=== PATIENT | female | born 1950 | race Caucasian/White ===

== ENCOUNTER 2024-09-05 20:14 | Inpatient (IN) | payer MEDICARE, OTHER, SELFPAY ==
--- NOTE | ~2024-09-05 | XR_ITS ---
CHEST RADIOGRAPH, PA AND LATERAL CLINICAL HISTORY: dizziness, htn . COMPARISON: None available TECHNIQUE: PA and lateral views of the chest. FINDINGS The cardiomediastinal silhouette is unremarkable. The lungs are clear. Visualized osseous structures and soft tissues are unremarkable. IMPRESSION: No focal infiltrate or effusion. Reviewed, dictated and finalized at location A.
--- NOTE | ~2024-09-05 | US_ITS ---
EXAMINATION: US soft tissue head and neck DATE: 09/07/2024 13:35 INDICATION: Elevated calcium and PTH levels TECHNIQUE: Multiple grayscale and Doppler ultrasound images of the neck were obtained. COMPARISON: Carotid CT angiogram dated 09/05/2024 FINDINGS: There is a 2.9 x 1.8 x 1.3 cm solid hypoechoic taller than wide nodule with smooth margins along the deep margin of the inferior left thyroid lobe. There is a relatively well-defined echogenic margin be tween the nodule and the thyroid which would favor a parathyroid adenoma or other extrathyroidal nodu le over a TI-RADS 5 thyroid nodule. Incompletely visualized 1.5 cm solid mildly hyperechoic nodule at the inferior right thyroid with ill-defined margins and without echogenic foci. (TI-RADS 3, mildly s uspicious , FNA if >=2.5 cm, annual followup is >=1.5 cm). IMPRESSION: 1. 2.9 x 1.8 x 1.3 cm solid hypoechoic nodule along side but likely peripheral to the deep lower pole of the left thyroid which would favor a parathyroid adenoma over a TI RADS 5 left thyroid nodule. Co uld consider either percutaneous ultrasound-guided fine-needle aspiration or parathyroid scintigraphy for further evaluation. 2. Incompletely visualized 1.5 cm Ti RADS 3 right thyroid nodule for which annual ultrasound follow-u p would be recommended. Reviewed, dictated and finalized at location A. IMPRESSION: 1. 2.9 x 1.8 x 1.3 cm solid hypoechoic nodule along side but likely peripheral to the deep lower pole of the left thyroid which would favor a parathyroid nohemi moises over a TI RADS 5 left thyroid nodule. Could consider either percutaneous ul trasound-guided fine-needle aspiration or parathyroid scintigraphy for further evaluation. 2. Incompletely visualized 1.5 cm Ti RADS 3 right thyroid nodule for which gianfranco al ultrasound follow-up would be recommended.
--- NOTE | ~2024-09-05 | CT_ITS ---
CTA brain carotid Ordering provider: Mara Torrez MD History: . vertigo. Comparison: None Technique: CT angiogram head and neck was performed following timed intravenous injection of contrast . Thin slice axial images and reformatted coronal images were obtained. Three dimensional reformatted images of the brain were also obtained using a [employer] workstation. DLP: 1603 mGy-cm FINDINGS: HEAD: --ANTERIOR AND MIDDLE CEREBRAL ARTERIES AND BRANCHES: Normal caliber and contour. --INTERNAL CAROTID ARTERIES: Moderate atheromatous disease bilaterally resulting in mild stenosis but no occlusion. --BASILAR ARTERY AND BRANCHES: Mild atheromatous disease but no significant stenosis or occlusion. --POSTERIOR CEREBRAL ARTERIES: Normal caliber and contour --POSTERIOR COMMUNICATING ARTERIES: Not well visualized likely related to congenital absence or small size. --ANEURYSM: None visualized. --BRAIN: The ventricles are enlarged. The dilatation of the ventricles is proportional to the degree of sulcal prominence, not uncommon in the senescent brain. Decreased attenuation is identified within the periventricular white matter, likely secondary to micr ovascular ischemic disease, in a patient of this age. There is no mass, mass effect or midline shift. There is no abnormal extra-axial fluid collection or intracranial hemorrhage. Visualized paranasal sinuses are clear. The mastoid air cells are well aerated. No acute displaced fractures within the overlying cranium. NECK: --RIGHT CERVICAL CAROTID SYSTEM: Mild atheromatous disease of the carotid bulb and proximal internal carotid artery without significant stenosis. Percent stenosis per NASCET criteria is 0% No carotid di ssection. --LEFT CERVICAL CAROTID SYSTEM: Mild atheromatous disease of the carotid bulb and proximal internal c arotid artery without significant stenosis. Percent stenosis per NASCET criteria is 0% No carotid dis section. --VERTEBRAL ARTERIES: Normal caliber and contour. --VISUALIZED AORTIC ARCH AND BRANCHING VESSELS: Mild atheromatous disease but no significant stenosis . --SOFT TISSUES: Heterogeneous appearance of the thyroid gland. --CERVICAL SPINE: Age appropriate degenerative changes. IMPRESSION: 1. Unremarkable CTA head and neck. Percent stenosis per NASCET criteria bilaterally is 0% Reviewed, dictated and finalized at location A. IMPRESSION: 1. Unremarkable CTA head and neck. Percent stenosis per NASCET criteria bilate rally is 0%
[2024-09-05 20:18] VITALS: BP 162/84; PULSE 68; RESP 18; TEMP 36.4; O2SAT 97
--- NOTE | 2024-09-05 20:21 | ECG_ITS ---
Test Date: 2024-09-05 20:31:34 Measurements Intervals [place] Rate: 62 P: 76 OR: 213 QRS: 12 QRSD: 87 T: 29 QT: 358 QTc: 365 Interpretive Statements SINUS RHYTHM WITH FIRST DEGREE AV BLOCK SEPTAL MYOCARDIAL INFARCTION , OF INDETERMINATE AGE [40+ ms Q WAVE IN V1/V2] No previous ECG available for comparison Electronically Signed On 09-06-2024 14:19:10 CDT by Oswald Shah M.D.
[2024-09-05 20:39] LABS: Basophils Absolute Auto 0.1 K/mm3 (0.0-0.1); Basophils Percent Auto 1.1 % (0.2-1.2); Eosinophils Absolute Auto 0.3 K/mm3 (0-0.3); Hematocrit 45.8 % (37.0-47.0); Hemoglobin 14.5 g/dL (12.0-15.0); Immature Granulocyte Absolute 0.05 K/mm3 (0.00-0.031); Immature Granulocyte Percent A 0.5 % (0-0.5); Lymphocytes Absolute Auto 3.31 K/mm3 (0.9-3.2); Lymphocytes Percent Auto 32.5 % (18.3-44.2); Mean Corpuscular HGB Conc 31.7 g/dl (32-36); Mean Corpuscular Hemoglobin 31.5 pg (26-34); Mean Corpuscular Volume 99.6 fl (80-100); Mean Platelet Volume 10.6 fl (7.4-10.4); Monocytes Absolute Auto 0.7 K/mm3 (0.1-0.6); Monocytes Percent Auto 7.3 % (2.6-8.5); Neutrophils Absolute Auto 5.7 K/mm3 (1.3-6.7); Neutrophils Percent Auto 55.6 % (45.5-73.1); Platelet Count Result 208 k/mm3 (150-375); Red Cell Distribution Width 13.3 % (11.5-14.5); White Blood Count 10.2 K/mm3 (4.5-10.0)
[2024-09-05 20:58] LABS: Alanine Aminotransferase 15 U/L (6-35); Alkaline Phosphatase 127 U/L (38-126); Anion Gap 7 mmol/L (4-12); Aspartate Amino Transferase 27 U/L (14-36); Bilirubin,Total 0.7 mg/dL (0.2-1.3); Blood Urea Nitrogen 13 mg/dL (7-17); Carbon Dioxide 21 mmol/L (22-30); Chloride 107 mmol/L (98-107); Estimated Glomerular Filt Rate 50; Glucose 129 mg/dL (65-110); Potassium 3.7 mmol/L (3.4-5.0); Sodium 135 mmol/L (137-145)
[2024-09-05] MEDS: LACTATED RINGERS 1,000 ML 999 ML IV CONT (21:33)
[2024-09-05 21:35] VITALS: BP 194/62; PULSE 57; RESP 14; O2SAT 100
[2024-09-05] MEDS: MECLIZINE HCL 25 MG TABLET PO (22:41)
--- NOTE | 2024-09-05 23:04 | ED_ITS ---
HPI - Dizziness General Chief Complaint: Dizziness Stated Complaint: dizziness, n/v, htn 200/80s Time Seen by Provider: 09/05/24 21:09 History of Present Illness HPI Narrative: Patient presenting here with dizziness, she was found have high blood pressure while she was actively throwing up by EMS, she states that around 5 this evening she started feeling dizzy, worse when she moves around, patient is either passing out or feel like room is spinning around her with nausea. Now that she is sitting here she denies any complaints whatsoever, no headache, recent head trauma, etc. she has no medical history of but she also has not seen a doctor in many many years Related Data Home Medications ?Medication ?Instructions ?Recorded ?Confirmed ?Last Taken ?Type No Home Medications 09/06/24 09/06/24 Unknown History Allergies Allergy/AdvReac Type Severity Reaction Status Date / Time Sulfa (Sulfonamide Allergy Itching Verified 09/05/24 20:17 Antibiotics) Review of Systems 2 Review of Systems: All systems reviewed & are unremarkable except as noted in HPI and below PMFSH Past Medical History Medical History (Updated 09/06/24 @ 03:02 by Mara Torrez MD) Hypercalcemia Dizziness Family History Family History Mother Asthma Hypertension Father Congestive heart failure Hypertension Social History Social History Smoking status: Current every day smoker Tobacco type: cigarettes Alcohol intake: never Substance use: never Do You Feel Safe in your Home?: Yes Lack of Transportation: No Lack of Food: Never True Current Housing: I Have Housing Concerned About Future Housing: No Difficulty Paying Gas/Electric Bills: No Difficulty Paying for Meds: No Currently Unemployed: No Education: Trade/Vocational Certificate Difficulty w/ Childcare or Family Care: No Spiritual care concerns: No Exam 2 Narrative: EXAMINATION OF ORGAN SYSTEMS/BODY AREAS: Constitutional: Vital signs per nursing GENERAL:[No acute distress, non-toxic appearing.] HEAD: Normal with no signs of head trauma. EYES: EOMI, conjunctiva normal, PERRL ENT: Hearing grossly intact LUNGS: Nonlabored breathing. HEART: [Regular rate and rhythm] ABD: [Soft], [nontender to palpation] EXT: Normal range of motion SKIN: [No rashes or lesions.] NEURO: [Alert and oriented x 3. No gross focal sensory or strength deficits.] PSYCH: Normal affect Course Vital Signs Vital signs: Vital Signs Temperature 97.6 F 09/05/24 20:18 Pulse Rate 68 09/05/24 20:18 Respiratory Rate 18 09/05/24 20:18 Blood Pressure 162/84 H 09/05/24 20:18 Pulse Oximetry 97 09/05/24 20:18 Oxygen Delivery Room Air 09/05/24 20:18 Temperature 97.1 F L 09/06/24 02:08 Pulse Rate 67 09/06/24 02:08 Respiratory Rate 18 09/06/24 02:08 Blood Pressure 157/73 H 09/06/24 02:08 Pulse Oximetry 100 09/06/24 02:08 Oxygen Delivery Room Air 09/06/24 00:52 MDM - Dizziness MDM Narrative Medical decision making narrative: Patient presents here with vertigo, hypertension, she has not seen a doctor in years. Vertigo started earlier in the night but only when she moves, she is currently resting comfortably and has no symptoms whatsoever. No recent viral illness, ear issues, or anything else. Basic labs are concerning for her calcium 12.5. Has never been worked up for anything like this in the past, denies night sweats, per family does have some weight loss recently and some low back pain. I did start IV fluids to start dilating the calcium, wide differential including tumor or parathyroid hormone abnormality or multiple myeloma, discussed this with patient and family at bedside regarding outpatient versus inpatient management, family very concerned that patient never goes to the doctor and would refuse to go and would like her to be admitted for further evaluation. CTA head and neck was obtained by myself to rule out large intracranial abnormality and this is thankfully negative. I also have low concern for central cause as she is asymptomatic at this time Discussed with hospitalist for admission. Lab Data 09/05/24 20:30 09/06/24 01:16 Labs: Lab Results 09/05/24 09/05/24 Range/Units 20:30 23:00 WBC 10.2 H (4.5-10.0) K/mm3 RBC 4.60 (4.2-5.4) M/mm3 Hgb 14.5 (12.0-15.0) g/dL Hct 45.8 (37.0-47.0) % MCV 99.6 (80-100) fl MCH 31.5 (26-34) pg MCHC 31.7 L (32-36) g/dl RDW 13.3 (11.5-14.5) % Plt Count 208 (150-375) k/mm3 MPV 10.6 H (7.4-10.4) fl Immature Gran % (Auto) 0.5 (0-0.5) % Neut % (Auto) 55.6 (45.5-73.1) % Lymph % (Auto) 32.5 (18.3-44.2) % [place] % (Auto) 7.3 (2.6-8.5) % Eos % (Auto) 3.0 (0-4.4) % Baso % (Auto) 1.1 (0.2-1.2) % Lymph # (Auto) 3.31 H (0.9-3.2) K/mm3 [place] # (Auto) 0.7 H (0.1-0.6) K/mm3 Eos # (Auto) 0.3 (0-0.3) K/mm3 Baso # (Auto) 0.1 (0.0-0.1) K/mm3 Abs Immat Gran (auto) 0.05 H (0.00-0.031) K/mm3 Absolute Neuts (auto) 5.7 (1.3-6.7) K/mm3 Absolute Nucleated RBC 0.000 (0.0-0.012) K/mm3 Nucleated RBC % 0.0 (0.0-0.2) % Sodium 135 L (137-145) mmol/L Potassium 3.7 (3.4-5.0) mmol/L Chloride 107 (98-107) mmol/L Carbon Dioxide 21 L (22-30) mmol/L Anion Gap 7 (4-12) mmol/L BUN 13 (7-17) mg/dL Creatinine 1.08 H (0.7-1.0) mg/dL Estim Creat Clear Calc Not Reportable Estimated GFR 50 L (59 - ) Glucose 129 H (65-110) mg/dL Calcium 12.5 H* (8.4-10.2) mg/dL Ionized Calcium Tegan Pending Total Bilirubin 0.7 (0.2-1.3) mg/dL AST 27 (14-36) U/L ALT 15 (6-35) U/L Alkaline Phosphatase 127 H (38-126) U/L Total Protein 8.0 (6.3-8.2) g/dL Albumin 4.0 (3.5-5.1) g/dL Discharge Plan Discharge Clinical Impression: Hypercalcemia, Dizziness, Hypertension, Nausea Patient Disposition: Still a Patient Condition: Serious
[2024-09-05 23:11] VITALS: BP 158/65; PULSE 82; RESP 14; O2SAT 99
[2024-09-05 23:26] VITALS: BP 168/110; BP 176/106; BP 200/66; PULSE 120; PULSE 84; PULSE 89
[2024-09-06] VITALS (10 sets, daily range): BP systolic 157–175; BP diastolic 56–73; PULSE 50–80; RESP 18; TEMP 36.2–36.7; O2SAT 98–100
--- NOTE | 2024-09-06 00:37 | ADMGEN ---
This patient, Dalia Zaragoza, was admitted to Medical Room 347-. Patient/family oriented to hospital policies and general routines including ID bracelet, bed and alarms, visiting hours, pain management, procedures, bathroom and other care routines, personal items, smoking policy, room service/diet, and visiting hours. Information on how to activate the Rapid Response Team has been discussed. Patient/Family are encouraged to report perceived risks to care and to ask questions if they do not understand what they are told or what they should do.
--- NOTE | 2024-09-06 01:00 | P.HP_ITS ---
H&P: [facility] History of Present Illness Date/Time: 09/06/24 01:00 Chief Complaint: Dizzy Narrative: This is a very pleasant 73-year-old female patient who reportedly has not seen a doctor in greater than 20 years because she ?is not ill. She has 6 out no routine screening or medical care. She is accompanied by her daughters at the bedside. Patient states today she had a temporary sensation of dizziness at rest that was made worse with movement. She stated the dizziness made her nauseated. She denied any symptoms of chest pain, dizziness, palpitations, nausea, vomiting, diarrhea, headache. She has not recently had any falls or hit her head. She denies any other complaints and states that now her symptoms are resolved. Patient does not take any home medications that are prescribed as she does not see medical provider but she does take multiple different [id number] vitamins. In the emergency room a workup was performed and this included labs, imaging and EKG. EKG showing normal sinus rhythm with a first-degree AV block at a rate of 62 beats per minute. Patient's vital signs are stable, labs with unremarkable CBC and metabolic panel with exception of calcium noted at 12.5. Albumin is n ormal at 4.0. Ionized calcium is ordered and is pending. A stat CMP repeat after giving IV fluids was ordered and is pending. CTA head and neck without any acute findings. 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 Chest x-ray is normal. Patient without any acute complaints at this time but is am able to admission for hydration and possible treatment with bisphosphonates and further workup as she does not seek out regular medical care. Review of Systems Review of Systems: All systems reviewed & are unremarkable except as noted in HPI and below [facility] Past Medical History Medical History (Updated 09/06/24 @ 01:08 by SEN Youngblood) Hypercalcemia Dizziness Family History Family History Mother Asthma Hypertension Father Congestive heart failure Hypertension Social History Social History Smoking status: Current every day smoker Tobacco type: cigarettes Alcohol intake: never Substance use: never Do You Feel Safe in your Home?: Yes Lack of Transportation: No Lack of Food: Never True Current Housing: I Have Housing Concerned About Future Housing: No Difficulty Paying Gas/Electric Bills: No Difficulty Paying for Meds: No Currently Unemployed: No Education: Trade/Vocational Certificate Difficulty w/ Childcare or Family Care: No Spiritual care concerns: No Meds Home Medications and Allergies Home Medications ?Medication ?Instructions ?Recorded ?Confirmed ?Type No Home Medications 09/06/24 09/06/24 History Allergies Allergy/AdvReac Type Severity Reaction Status Date / Time Sulfa (Sulfonamide Allergy Itching Verified 09/05/24 20:17 Antibiotics) Vital Signs Vital Signs - 24 hr 09/05/24 20:18 09/05/24 21:35 09/05/24 23:11 Temperature 97.6 F Pulse Rate 68 57 L 82 Respiratory Rate 18 14 14 Blood Pressure 162/84 H 194/62 H 158/65 H Pulse Oximetry 97 100 99 Oxygen Delivery Room Air 09/05/24 23:26 09/05/24 23:26 09/05/24 23:26 Temperature Pulse Rate 84 89 120 H Respiratory Rate Blood Pressure 200/66 H 176/106 H 168/110 H Pulse Oximetry Oxygen Delivery 09/06/24 00:42 09/06/24 00:52 Temperature Pulse Rate 73 Respiratory Rate Blood Pressure Pulse Oximetry Oxygen Delivery Room Air Exam Const: General: comfortable and no acute distress HENMT: Ears: TM's normal bilaterally and TMs normal Face/Nose/Sinus: Normal nares present and no epistaxis Mouth: Yes moist mucous membranes Eyes: General: appearance normal, both eyes and all related structures Sclera: sclerae normal Pupils: Equal, round and reactive pupils present EOM: EOMs intact bilaterally Neck: Neck: supple and no JVD Thyroid: thyroid normal Carotids: no bruits Lymphatic: lymphadenopathy not noted Chest: Other: Nontender Resp: Effort & Inspection: normal respiratory effort Auscultation: clear to auscultation bilaterally Cardio: Rate: regular rate Rhythm: regular rhythm Heart sounds: no gallops, no murmurs and no rubs GI: Inspection: non-distended GI Palp: Yes Soft to palpation and No Tenderness to palpation present (GI) Auscultation: normal bowel sounds Skin: General skin exam: normal color, no rashes or lesions noted and no erythema Lesions: no lesions noted Rashes: no rashes noted Wounds: no wounds Neuro: Speech: normal speech Motor exam (neuro): 5/5 motor strength present throughout and Normal motor muscle tone present throughout Sensory Exam: normal sensation Other: Gait not tested, nonfocal exam findings Extrem: General: normal to inspection, no edema and no pedal edema Other: Moves all extremities equally and well Psych: Mental Status: mental status grossly normal Affect: normal affect H&P: Results Labs Labs: Short CBC 09/05/24 Range/Units 20:30 WBC 10.2 H (4.5-10.0) K/mm3 Hgb 14.5 (12.0-15.0) g/dL Hct 45.8 (37.0-47.0) % Plt Count 208 (150-375) k/mm3 BMP 09/05/24 20:30 Sodium 135 L Potassium 3.7 Chloride 107 Carbon Dioxide 21 L BUN 13 Creatinine 1.08 H Glucose 129 H Calcium 12.5 H* Liver Function 09/05/24 Range/Units 20:30 Total Bilirubin 0.7 (0.2-1.3) mg/dL AST 27 (14-36) U/L ALT 15 (6-35) U/L Alkaline Phosphatase 127 H (38-126) U/L Albumin 4.0 (3.5-5.1) g/dL Assessment and Plan Assessment and plan (1) Dizziness: Code(s): R42 - Dizziness and giddiness Status: Acute Assessment and Plan: * Exact etiology uncertain. * Now resolved after receiving meclizine, suggesting BPV * Trend labs, vitals * Telemetry * Fall precautions * Check baseline routine labs, (lipids, TSH, PTH, magnesium, UA, trend trops, A1C) (2) Hypercalcemia: Code(s): E83.52 - Hypercalcemia Status: Acute Assessment and Plan: * Elevated at 12.5. * Ionized calcium pending * Telemetry * EKG without is a make changes. There is a first-degree AV block. * Calcitonin nasal spray initiated daily with 1st dose now Quality VTE Prophylaxis VTE prophylaxis: mechanical ordered Hospitalist [facility] Advance Care Plan I have confirmed that the patient's Advanced Care Plan is present, code status is documented, or surrogate decision maker is listed in patient medical record.: Yes Medication Reconciliation I have utilized all available resources to obtain, update and review the patients current medications (includes all prescriptions, OTC, herbals, cannabis, and nutritional supplements).: Yes
[2024-09-06] MEDS: CALCITONIN NASAL 200 UNITS/SPRAY 3.7 ML BOTTLE 1 SPRAY NASAL (01:26)
[2024-09-06 01:51] LABS: Alanine Aminotransferase 15 U/L (6-35); Albumin Level 3.9 g/dL (3.5-5.1); Alkaline Phosphatase 128 U/L (38-126); Anion Gap 9 mmol/L (4-12); Aspartate Amino Transferase 18 U/L (14-36); Bilirubin,Total 0.6 mg/dL (0.2-1.3); Blood Urea Nitrogen 12 mg/dL (7-17); Calcium 12.7 mg/dL (8.4-10.2); Carbon Dioxide 20 mmol/L (22-30); Chloride 107 mmol/L (98-107); Estimated Glomerular Filt Rate 48; Glucose 122 mg/dL (65-110); Potassium 4.2 mmol/L (3.4-5.0); Sodium 136 mmol/L (137-145)
[2024-09-06 01:53] LABS: Parathyroid Intact 340.3 pg/mL (14.5-75.2)
[2024-09-06 05:48] LABS: Add Urine Microscopic? YES; Appearance Urine Cloudy (Clear); Bacteria Urine 2+ /hpf; Bilirubin Urine Negative (Negative); Blood Urine 1+ (Negative); Color Urine Yellow (Yellow); Glucose Urine UA Negative (Negative); Ketones Urine Negative (Negative); Leukocyte Esterase Ur 3+ LEU/UL (Negative); Nitrate Urine Negative (Negative); Non Pathogenic Casts 0-2; Protein Urine Negative (Negative); RBC Urine 0-2 /hpf (0-2); Specific Grav Ur 1.017 (1.001-1.035); Squamous Epithelial Cell Urine Occasional /hpf (Few); Urobilinogen Urine 0.2 mg/dL (<2.0); WBC Urine 21-50 /hpf (0-3); pH Urine 7.5 (5.0-9.0)
[2024-09-06 05:57] LABS: Basophils Absolute Auto 0.1 K/mm3 (0.0-0.1); Basophils Percent Auto 0.8 % (0.2-1.2); Eosinophils Percent Auto 0.1 % (0-4.4); Hematocrit 46.8 % (37.0-47.0); Hemoglobin 14.6 g/dL (12.0-15.0); Immature Granulocyte Absolute 0.02 K/mm3 (0.00-0.031); Immature Granulocyte Percent A 0.2 % (0-0.5); Lymphocytes Absolute Auto 2.79 K/mm3 (0.9-3.2); Mean Corpuscular HGB Conc 31.2 g/dl (32-36); Mean Corpuscular Volume 99.4 fl (80-100); Mean Platelet Volume 11.3 fl (7.4-10.4); Monocytes Absolute Auto 0.7 K/mm3 (0.1-0.6); Monocytes Percent Auto 7.6 % (2.6-8.5); Neutrophils Absolute Auto 5.7 K/mm3 (1.3-6.7); Neutrophils Percent Auto 61.3 % (45.5-73.1); Platelet Count Result 220 k/mm3 (150-375); Red Blood Count 4.71 M/mm3 (4.2-5.4); Red Cell Distribution Width 13.3 % (11.5-14.5); White Blood Count 9.3 K/mm3 (4.5-10.0)
[2024-09-06 06:04] LABS: Cholesterol 234 mg/dL (0-200); HDL Direct 50 mg/dL; Magnesium 2.3 mg/dL (1.6-2.3); Triglycerides 125 mg/dL (<150)
[2024-09-06 06:10] LABS: Iron 73 ug/dL (37-170)
[2024-09-06 06:15] LABS: LDL Cholesterol Direct 139 mg/dL
[2024-09-06 06:19] LABS: Percent Iron Saturation 28 % (20-50)
[2024-09-06 06:41] LABS: Thyroid Stimulating Hormone Reflex 0.788 uIU/mL (0.465-4.68)
[2024-09-06 13:36] LABS: Calcium 12.5 mg/dL (8.4-10.2)
[2024-09-06] MEDS: LORazepam (*CRX) 0.5 MG TABLET PO (16:50)
--- NOTE | 2024-09-06 17:25 | P.PNIM_ITS ---
Progress Note: A&P Assessment and Plan (1) Dizziness: Code(s): R42 - Dizziness and giddiness Status: Acute Assessment and Plan: * Exact etiology uncertain. * Now resolved after receiving meclizine, suggesting BPV * Trend labs, vitals * Telemetry * Fall precautions * Check baseline routine labs, (lipids, TSH, PTH, magnesium, UA, trend trops, A1C) (2) Hypercalcemia: Code(s): E83.52 - Hypercalcemia Status: Acute Assessment and Plan: * Elevated at 12.5. * Ionized calcium pending * Telemetry * EKG without is a make changes. There is a first-degree AV block. * Calcitonin nasal spray initiated daily with 1st dose now Plan 73 y/o female who has not seen the primary care provider in over 20 years presented with dizziness, head and neck CTA are unremarkable CTA head and neck. Percent stenosis per NASCET criteria bilaterally is 0%. patient sysptoms did improve with meclizine suggesting possible BPV, patient serum calcuim is elevated 12.7, patient denies any abdominal, or bony pain, further evaluation in progress and will plan. Subjective Date/time seen: 09/06/24 17:25 Interval history: Dizzy H&P-Narrative: This is a very pleasant 73-year-old female patient who reportedly has not seen a doctor in greater than 20 years because she ?is not ill. She has 6 out no routine screening or medical care. She is accompanied by her daughters at the bedside. Patient states today she had a temporary sensation of dizziness at rest that was made worse with movement. She stated the dizziness made her nauseated. She denied any symptoms of chest pain, dizziness, palpitations, nausea, vomiting, diarrhea, headache. She has not recently had any falls or hit her head. She denies any other complaints and states that now her symptoms are resolved. Patient does not take any home medications that are prescribed as she does not see medical provider but she does take multiple different xgcn-qte-ivimrov vitamins. In the emergency room a workup was performed and this included labs, imaging and EKG. EKG showing normal sinus rhythm with a first-degree AV block at a rate of 62 beats per minute. Patient's vital signs are stable, labs with unremarkable CBC and metabolic panel with exception of calcium noted at 12.5. Albumin is normal at 4.0. Ionized calcium is ordered and is pending. A stat CMP repeat after giving IV fluids was ordered and is pending. CTA head and neck without any acute findings. 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 Chest x-ray is normal. Patient without any acute complaints at this time but is am able to admission for hydration and possible treatment with bisphosphonates and further workup as she does not seek out regular medical care. 73 y/o female who has not seen the primary care provider in over 20 years presented with dizziness, head and neck CTA are unremarkable CTA head and neck. Percent stenosis per NASCET criteria bilaterally is 0%. patient sysptoms did improve with meclizine suggesting possible BPV, patient serum calcuim is elevated 12.7, patient denies any abdominal, or bony pain, further evaluation in progress and will plan. Review of Systems Review of Systems: All systems reviewed & are unremarkable except as noted in HPI and below Exam Narrative: Patient is comfortable, NAD HEENT: eyes are clear and none icteric LUNGS:CTA HEART: RR S1S2 ABD: BS+, Soft and nontender Lower extremities: no edema SKIN: nonjaundiced Neuro: grossly intact. Objective Data Vital Signs Vital Signs: Vital Signs - 24 hr 09/05/24 20:18 09/05/24 21:35 09/05/24 23:11 Temperature 36.4 C Pulse Rate 68 57 L 82 Respiratory Rate 18 14 14 Blood Pressure 162/84 H 194/62 H 158/65 H Pulse Oximetry 97 100 99 Oxygen Delivery Room Air 09/05/24 23:26 09/05/24 23:26 09/05/24 23:26 Temperature Pulse Rate 84 89 120 H Respiratory Rate Blood Pressure 200/66 H 176/106 H 168/110 H Pulse Oximetry Oxygen Delivery 09/06/24 00:42 09/06/24 00:52 09/06/24 02:08 Temperature 36.2 C L Pulse Rate 73 67 Respiratory Rate 18 Blood Pressure 157/73 H Pulse Oximetry 100 Oxygen Delivery Room Air 09/06/24 04:00 09/06/24 06:00 09/06/24 08:00 Temperature 36.4 C Pulse Rate 56 L 61 50 L Respiratory Rate 18 Blood Pressure 163/69 H Pulse Oximetry 100 Oxygen Delivery 09/06/24 12:00 09/06/24 13:36 09/06/24 16:00 Temperature 36.6 C Pulse Rate 63 80 61 Respiratory Rate 18 Blood Pressure 166/66 H Pulse Oximetry 100 Oxygen Delivery Intake/Output Intake/Output: Intake & Output 09/03/24 09/04/24 09/05/24 09/06/24 23:59 23:59 23:59 23:59 Intake Total 1000 920 Output Total 800 Balance 1000 120 Meds/Results Medications: Active Medications Generic Name Dose Route Start Last Admin Trade Name Freq PRN Reason Stop Dose Admin Calcitonin [place] 1 spray 09/06/24 01:10 09/06/24 01:26 Calcitonin Nasal 200 Units/[place] 3.7 Ml Bottle NASAL 1 spray QAM ABDIRIZAK Administration Radiology Results: ITS Impressions Chest X-Ray 09/05/24 20:57 IMPRESSION: No focal infiltrate or effusion. Head/Neck CTA 09/05/24 23:07 IMPRESSION: 1. Unremarkable CTA head and neck. Percent stenosis per NASCET criteria bilaterally is 0% Labs Labs: Laboratory Results - last 24 hr 09/05/24 09/06/24 09/06/24 20:30 01:11 01:16 WBC 10.2 H RBC 4.60 Hgb 14.5 Hct 45.8 MCV 99.6 MCH 31.5 MCHC 31.7 L RDW 13.3 Plt Count 208 MPV 10.6 H Immature Gran % (Auto) 0.5 Neut % (Auto) 55.6 Lymph % (Auto) 32.5 [place] % (Auto) 7.3 Eos % (Auto) 3.0 Baso % (Auto) 1.1 Lymph # (Auto) 3.31 H [place] # (Auto) 0.7 H Eos # (Auto) 0.3 Baso # (Auto) 0.1 Abs Immat Gran (auto) 0.05 H Absolute Neuts (auto) 5.7 Absolute Nucleated RBC 0.000 Nucleated RBC % 0.0 Sodium 135 L 136 L Potassium 3.7 4.2 Chloride 107 107 Carbon Dioxide 21 L 20 L Anion Gap 7 9 BUN 13 12 Creatinine 1.08 H 1.12 H Estim Creat Clear Calc Not Reportable Not Reportable Estimated GFR 50 L 48 L Glucose 129 H 122 H Calcium 12.5 H* 12.7 H* Magnesium Iron TIBC % Saturation Total Bilirubin 0.7 0.6 AST 27 18 ALT 15 15 Alkaline Phosphatase 127 H 128 H Total Protein 8.0 7.0 Albumin 4.0 3.9 Triglycerides Cholesterol LDL Cholesterol Direct HDL Direct TSH (Reflex) PTH Intact 340.3 H Urine Color Urine Appearance Urine pH Ur Specific [place] Urine Protein Urine Glucose (UA) Urine Ketones Ur Blood (Man) Urine Nitrate Urine Bilirubin Urine Urobilinogen Leukocyte Esterase Rfl Urine RBC Urine WBC Ur Squamous Epith Cells Urine Bacteria Urine Casts 09/06/24 09/06/24 05:27 05:32 WBC 9.3 RBC 4.71 Hgb 14.6 Hct 46.8 MCV 99.4 MCH 31.0 MCHC 31.2 L RDW 13.3 Plt Count 220 MPV 11.3 H Immature Gran % (Auto) 0.2 Neut % (Auto) 61.3 Lymph % (Auto) 30.0 [place] % (Auto) 7.6 Eos % (Auto) 0.1 Baso % (Auto) 0.8 Lymph # (Auto) 2.79 [place] # (Auto) 0.7 H Eos # (Auto) 0.0 Baso # (Auto) 0.1 Abs Immat Gran (auto) 0.02 Absolute Neuts (auto) 5.7 Absolute Nucleated RBC 0.000 Nucleated RBC % 0.0 Sodium Potassium Chloride Carbon Dioxide Anion Gap BUN Creatinine Estim Creat Clear Calc Estimated GFR Glucose Calcium Magnesium 2.3 Iron 73 TIBC 265 % Saturation 28 Total Bilirubin AST ALT Alkaline Phosphatase Total Protein Albumin Triglycerides 125 Cholesterol 234 H LDL Cholesterol Direct 139 HDL Direct 50 TSH (Reflex) 0.788 PTH Intact Urine Color Yellow Urine Appearance Cloudy H Urine pH 7.5 Ur Specific [place] 1.017 Urine Protein Negative Urine Glucose (UA) Negative Urine Ketones Negative Ur Blood (Man) 1+ H Urine Nitrate Negative Urine Bilirubin Negative Urine Urobilinogen 0.2 Leukocyte Esterase Rfl 3+ H Urine RBC 0-2 Urine WBC 21-50 H Ur Squamous Epith Cells Occasional Urine Bacteria 2+ H Urine Casts 0-2 Quality VTE Prophylaxis VTE prophylaxis: mechanical ordered
[2024-09-07] VITALS (10 sets, daily range): BP systolic 145–213; BP diastolic 50–90; PULSE 41–106; RESP 18; TEMP 36.3–36.7; O2SAT 97–100
[2024-09-07 06:55] LABS: Alanine Aminotransferase 13 U/L (6-35); Albumin Level 3.8 g/dL (3.5-5.1); Alkaline Phosphatase 123 U/L (38-126); Anion Gap 4 mmol/L (4-12); Aspartate Amino Transferase 19 U/L (14-36); Bilirubin,Total 0.9 mg/dL (0.2-1.3); Blood Urea Nitrogen 12 mg/dL (7-17); Carbon Dioxide 24 mmol/L (22-30); Chloride 109 mmol/L (98-107); Estimated CRCL calculation 31 ml/min; Estimated Glomerular Filt Rate 37; Glucose 76 mg/dL (65-110); Magnesium 2.2 mg/dL (1.6-2.3); Potassium 4.1 mmol/L (3.4-5.0); Sodium 137 mmol/L (137-145)
[2024-09-07] MEDS: CALCITONIN NASAL 200 UNITS/SPRAY 3.7 ML BOTTLE 1 SPRAY NASAL (08:44)
[2024-09-07 09:35] LABS: Ionized Calcium 6.7 mg/dL (4.7-5.5)
[2024-09-07 09:42] LABS: Vitamin D 25 Hydroxy 43.7 ng/mL
[2024-09-07 09:56] LABS: Thyroid Stimulating Hormone Reflex 0.965 uIU/mL (0.465-4.68)
[2024-09-07 10:01] LABS: Parathyroid Intact 273.7 pg/mL (14.5-75.2)
[2024-09-07] MEDS: hydrALAZINE HCL 25 MG TABLET PO (14:44)
--- NOTE | 2024-09-07 15:40 | P.PNIM_ITS ---
Progress Note: A&P Assessment and Plan (1) Dizziness: Code(s): R42 - Dizziness and giddiness Status: Acute Assessment and Plan: * Exact etiology uncertain. * Now resolved after receiving meclizine, suggesting BPV * Trend labs, vitals * Telemetry * Fall precautions * Check baseline routine labs, (lipids, TSH, PTH, magnesium, UA, trend trops, A1C) (2) Hypercalcemia: Code(s): E83.52 - Hypercalcemia Status: Acute Assessment and Plan: * Elevated at 12.5. * Ionized calcium pending * Telemetry * EKG without is a make changes. There is a first-degree AV block. * Calcitonin nasal spray initiated daily with 1st dose now Plan 73 y/o female who has not seen the primary care provider in over 20 years presented with dizziness, head and neck CTA are unremarkable CTA head and neck. Percent stenosis per NASCET criteria bilaterally is 0%. patient sysptoms did improve with meclizine suggesting possible BPV, patient serum calcuim is elevated 12.7, this morning her calcium level is 13 and PTH intact levels are hi gh her thyroid and vitamin d levels are normal, US of neck showed 2.9 x 1.8 x 1.3 cm solid hypoechoic nodule along side but likely peripheral to the deep lower pole of the left thyroid which would favor a parathyroid adenoma over a TI RADS 5 left thyroid nodule. Could consider either percutaneous ultrasound-guided fine-needle aspiration or parathyroid scintigraphy for further evaluation. will consult oncologist for further recommendations patient denies any abdominal, or bony pain, further evaluation in progress and will plan. went back and gave update on US result and will consult oncologist for further recommendation. Subjective Date/time seen: 09/07/24 15:40 Interval history: Dizzy H&P-Narrative: This is a very pleasant 73-year-old female patient who reportedly has not seen a doctor in greater than 20 years because she ?is not ill. She has 6 out no routine screening or medical care. She is accompanied by her daughters at the bedside. Patient states today she had a temporary sensation of dizziness at rest that was made worse with movement. She stated the dizziness made her nauseated. She denied any symptoms of chest pain, dizziness, palpitations, nausea, vomiting, diarrhea, headache. She has not recently had any falls or hit her head. She denies any other complaints and states that now her symptoms are resolved. Patient does not take any home medications that are prescribed as she does not see medical provider but she does take multiple different hual-vwc-aeqgwim vitamins. In the emergency room a workup was performed and this included labs, imaging and EKG. EKG showing normal sinus rhythm with a first-degree AV block at a rate of 62 beats per minute. Patient's vital signs are stable, labs with unremarkable CBC and metabolic panel with exception of calcium noted at 12.5. Albumin is normal at 4.0. Ionized calcium is ordered and is pending. A stat CMP repeat after giving IV fluids was ordered and is pending. CTA head and neck without any acute findings. 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 Chest x-ray is normal. Patient without any acute complaints at this time but is am able to admission for hydration and possible treatment with bisphosphonates and further workup as she does not seek out regular medical care. 73 y/o female who has not seen the primary care provider in over 20 years presented with dizziness, head and neck CTA are unremarkable CTA head and neck. Percent stenosis per NASCET criteria bilaterally is 0%. patient sysptoms did improve with meclizine suggesting possible BPV, patient serum calcuim is elevated 12.7, this morning her calcium level is 13 and PTH intact levels are high her thyroid and vitamin d levels are normal, US of neck showed 2.9 x 1.8 x 1.3 cm solid hypoechoic nodule along side but likely peripheral to the deep lower pole of the left thyroid which would favor a parathyroid adenoma over a TI RADS 5 left thyroid nodule. Could consider either percutaneous ultrasound-guided fine-needle aspiration or parathyroid scintigraphy for further evaluation. will consult oncologist for further recommendations patient denies any abdominal, or bony pain, further evaluation in progress and will plan. went back and gave update on US result and will consult oncologist for further recommendation. Review of Systems Review of Systems: All systems reviewed & are unremarkable except as noted in HPI and below Exam Narrative: Patient is comfortable, NAD HEENT: eyes are clear and none icteric LUNGS:CTA HEART: RR S1S2 ABD: BS+, Soft and nontender Lower extremities: no edema SKIN: nonjaundiced Neuro: grossly intact. Objective Data Vital Signs Vital Signs: Vital Signs - 24 hr 09/06/24 16:00 09/06/24 20:00 09/06/24 20:00 Temperature Pulse Rate 61 57 L Respiratory Rate Blood Pressure Pulse Oximetry Oxygen Delivery Room Air 09/06/24 20:16 09/07/24 00:00 09/07/24 04:00 Temperature 36.7 C Pulse Rate 66 51 L 41 L Respiratory Rate 18 Blood Pressure 175/56 H Pulse Oximetry 98 Oxygen Delivery 09/07/24 05:59 09/07/24 08:00 Temperature 36.3 C L Pulse Rate 60 Respiratory Rate 18 Blood Pressure 145/81 H Pulse Oximetry 97 Oxygen Delivery Room Air Intake/Output Intake/Output: Intake & Output 09/04/24 09/05/24 09/06/24 09/07/24 23:59 23:59 23:59 23:59 Intake Total 1000 1320 240 Output Total 900 0 Balance 1000 420 240 Meds/Results Medications: Active Medications Generic Name Dose Route Start Last Admin Trade Name Freq PRN Reason Stop Dose Admin Calcitonin [place] 1 spray 09/06/24 01:10 09/07/24 08:44 Calcitonin Nasal 200 Units/[place] 3.7 Ml Bottle NASAL 1 spray QAM ABDIRIZAK Administration Radiology Results: ITS Impressions Chest X-Ray 09/05/24 20:57 IMPRESSION: No focal infiltrate or effusion. Head/Neck CTA 09/05/24 23:07 IMPRESSION: 1. Unremarkable CTA head and neck. Percent stenosis per NASCET criteria bilaterally is 0% Head/Neck Ultrasound 09/07/24 13:44 IMPRESSION: 1. 2.9 x 1.8 x 1.3 cm solid hypoechoic nodule along side but likely peripheral to the deep lower pole of the left thyroid which would favor a parathyroid adenoma over a TI RADS 5 left thyroid nodule. Could consider either percutaneous ultrasound-guided fine-needle aspiration or parathyroid scintigraphy for further evaluation. 2. Incompletely visualized 1.5 cm Ti RADS 3 right thyroid nodule for which annual ultrasound follow-up would be recommended. Labs Labs: Laboratory Results - last 24 hr 09/05/24 09/07/24 09/07/24 23:00 06:15 08:39 Sodium 137 Potassium 4.1 Chloride 109 H Carbon Dioxide 24 Anion Gap 4 BUN 12 Creatinine 1.39 H Estim Creat Clear Calc 31 Estimated GFR 37 L Glucose 76 Calcium 13.0 H* Ionized Calcium [place] 6.7 H Magnesium 2.2 Total Bilirubin 0.9 AST 19 ALT 13 Alkaline Phosphatase 123 Total Protein 7.0 Albumin 3.8 Vitamin D 25-Hydroxy 43.7 TSH (Reflex) 0.965 PTH Intact 273.7 H Quality VTE Prophylaxis VTE prophylaxis: mechanical ordered
[2024-09-07] MEDS: hydrALAZINE HCL 20 MG/ML VIAL 10 MG IV PUSH (21:28)
[2024-09-08] VITALS (12 sets, daily range): BP systolic 133–173; BP diastolic 51–83; PULSE 61–86; RESP 16; TEMP 36.3–36.8; O2SAT 96–99
[2024-09-08 06:27] LABS: Hematocrit 42.9 % (37.0-47.0); Hemoglobin 13.7 g/dL (12.0-15.0); Mean Corpuscular HGB Conc 31.9 g/dl (32-36); Mean Corpuscular Hemoglobin 31.9 pg (26-34); Mean Corpuscular Volume 99.8 fl (80-100); Mean Platelet Volume 11.4 fl (7.4-10.4); Platelet Count Result 198 k/mm3 (150-375); Red Cell Distribution Width 13.4 % (11.5-14.5); White Blood Count 7.7 K/mm3 (4.5-10.0)
[2024-09-08 06:42] LABS: Alanine Aminotransferase 13 U/L (6-35); Albumin Level 3.7 g/dL (3.5-5.1); Alkaline Phosphatase 119 U/L (38-126); Anion Gap 6 mmol/L (4-12); Aspartate Amino Transferase 20 U/L (14-36); Bilirubin,Total 0.9 mg/dL (0.2-1.3); Blood Urea Nitrogen 13 mg/dL (7-17); Calcium 12.7 mg/dL (8.4-10.2); Carbon Dioxide 21 mmol/L (22-30); Chloride 111 mmol/L (98-107); Estimated CRCL calculation 35 ml/min; Estimated Glomerular Filt Rate 42; Glucose 83 mg/dL (65-110); Magnesium 2.2 mg/dL (1.6-2.3); Potassium 4.2 mmol/L (3.4-5.0); Sodium 138 mmol/L (137-145)
[2024-09-08] MEDS: CALCITONIN NASAL 200 UNITS/SPRAY 3.7 ML BOTTLE 1 SPRAY NASAL (08:21)
[2024-09-08] MEDS: SODIUM CHLORIDE 0.9% IV 1,000 ML 100 ML IV CONT ×2 (10:32→21:35)
[2024-09-08] MEDS: amLODIPine BESYLATE 5 MG TABLET PO (10:32)
--- NOTE | 2024-09-08 12:52 | P.CONONC_ITS ---
Assessment and Plan Assessment and plan (1) Hypercalcemia: Code(s): E83.52 - Hypercalcemia Status: Acute Plan This is a pleasant 73-year-old female patient who has been in remarkably good health came into medical attention due to lightheadedness and dizziness along with nausea. Labs showed elevated serum calcium. She denies any bone pain and neuropathy. Other labs showed elevated PTH of 340. I was consulted by Dr. Cameron and I recommended to do ultrasound soft tissue head and neck that was performed and showed 2.9 x 1.8 x 1.3 cm hypoechoic nodule inferior lobe of the thyroid lobe consistent with parathyroid adenoma. These findings are secondary to hyper parathyroidism. I would recommend Endocrinology and ENT consultation for surgery. Patient is on calcitonin will give her a dose of Zometa as well. Workup for multiple myeloma was ordered due to elevated calcium level and currently pending and most likely be negative. She was provided with my office information for follow-up. I have answered all the questions the patient and the daughter satisfaction. HPI Data of Consult Date/Time: 09/08/24 12:52 Requesting Physician: Laura Segundo MD Primary Care Provider: SET DESIGNER PHYSICIAN Consult Narrative Narrative: Dalia Zaragoza is a 73 year old female who has been in good health came into the hospital with lightheadedness and dizziness along with some nausea. She denies any chest pain and shortness of breath. Denies any bleeding and bruising. She is taking multivitamin without any extra calcium supplements. Denies any bone pain and neuropathy. Denies any previous history of malignancy. Labs showed elevated serum calcium of 12.5. Ultrasound head and neck showed 2.9 x 1.8 x 1.3 cm hypoechoic nodule within the inferior left thyroid lobe. This favors parathyroid adenoma. PTH level came back elevated at 340. Review of Systems 2 Review of Systems: Review of system as per HPI otherwise negative COUNTS INCLUDE 234 BEDS AT THE [facility] Past Medical History Medical History (System 09/06/24 @ 09:00 by Ovidio Mensah) Hypercalcemia Dizziness Family History Family History Mother Asthma Hypertension Father Congestive heart failure Hypertension Social History Social History (System 09/06/24 @ 09:00 by Ovidio Mensah) Smoking status: Current every day smoker Tobacco type: cigarettes Alcohol intake: never Substance use: never Do You Feel Safe in your Home?: Yes Lack of Transportation: No Lack of Food: Never True Current Housing: I Have Housing Concerned About Future Housing: No Difficulty Paying Gas/Electric Bills: No Difficulty Paying for Meds: No Currently Unemployed: No Education: Trade/Vocational Certificate Difficulty w/ Childcare or Family Care: No Spiritual care concerns: No Meds Home Medications and Allergies Home Medications ?Medication ?Instructions ?Recorded ?Confirmed ?Type No Home Medications 09/06/24 09/06/24 History Allergies Allergy/AdvReac Type Severity Reaction Status Date / Time Sulfa (Sulfonamide Allergy Itching Verified 09/06/24 09:00 Antibiotics) Vital Signs Vital Signs - 24 hr 09/07/24 14:00 09/07/24 16:00 09/07/24 20:00 Temperature 36.3 C L Pulse Rate 63 106 H Respiratory Rate 18 Blood Pressure 209/90 H Pulse Oximetry 100 Oxygen Delivery Room Air 09/07/24 20:00 09/07/24 21:04 09/07/24 23:08 Temperature 36.7 C Pulse Rate 59 L 73 Respiratory Rate 18 Blood Pressure 213/64 H 172/50 H Pulse Oximetry 99 Oxygen Delivery 09/08/24 00:00 09/08/24 04:00 09/08/24 05:43 Temperature Pulse Rate 64 67 74 Respiratory Rate 16 Blood Pressure 139/68 Pulse Oximetry 98 Oxygen Delivery 09/08/24 08:00 09/08/24 08:07 09/08/24 10:42 Temperature 36.8 C Pulse Rate 80 Respiratory Rate 16 Blood Pressure Pulse Oximetry 97 96 Oxygen Delivery Room Air Room Air 09/08/24 12:05 Temperature Pulse Rate 77 Respiratory Rate Blood Pressure 152/67 H Pulse Oximetry Oxygen Delivery Exam 2 Narrative: Lungs are clear to auscultation bilaterally Cardiovascular regular rate rhythm no murmurs Abdomen soft nontender nondistended Extremities no edema Results Labs 09/08/24 05:47 09/08/24 05:47 Labs: Short CBC 09/08/24 Range/Units 05:47 WBC 7.7 (4.5-10.0) K/mm3 Hgb 13.7 (12.0-15.0) g/dL Hct 42.9 (37.0-47.0) % Plt Count 198 (150-375) k/mm3 BMP 09/08/24 05:47 Sodium 138 Potassium 4.2 Chloride 111 H Carbon Dioxide 21 L BUN 13 Creatinine 1.24 H Glucose 83 Calcium 12.7 H* Liver Function 09/08/24 Range/Units 05:47 Total Bilirubin 0.9 (0.2-1.3) mg/dL AST 20 (14-36) U/L ALT 13 (6-35) U/L Alkaline Phosphatase 119 (38-126) U/L Albumin 3.7 (3.5-5.1) g/dL
[2024-09-08] MEDS: ZOLEDRONIC ACID 4 MG/100 ML 100 ML 300 MG IVPB (14:35)
--- NOTE | 2024-09-08 15:09 | P.DS_ITS ---
DS: Summary Time Spent with Patient Time attestation: Total time spent providing and/or coordinating discharge services: DS: Data Data Completed and Pending Labs on day of discharge: Labs from last 24 hours 09/08/24 09/07/24 05:47 18:29 WBC 7.7 RBC 4.30 Hgb 13.7 Hct 42.9 MCV 99.8 MCH 31.9 MCHC 31.9 L RDW 13.4 Plt Count 198 MPV 11.4 H Hemoglobin A % Pending Hemoglobin A2 Quant Pending Hemoglobin F Percent Pending Hemoglobinopathy Red Blood Count Pending Hemoglobinopathy Hct Pending Hemoglobinopathy Hgb Pending Hemoglobinopathy MCV Pending Hemoglobinopathy MCH Pending Hemoglobinopathy RDW Pending Hemoglobinopathy Interp Pending Sodium 138 Potassium 4.2 Chloride 111 H Carbon Dioxide 21 L Anion Gap 6 BUN 13 Creatinine 1.24 H Estim Creat Clear Calc 35 Estimated GFR 42 L Glucose 83 Calcium 12.7 H* Magnesium 2.2 Total Bilirubin 0.9 AST 20 ALT 13 Alkaline Phosphatase 119 Total Protein 7.0 Albumin 3.7 Immunoglobulin A Pending Immunoglobulin G Pending Immunoglobulin M Pending Plas Neurofilament Lt Chn Pending [place]/Lambda Ratio Pending Free [place] Light Chains Pending Free [place] Light Chain Pending Discharge Plan Discharge Attending physician on discharge: Laura Segundo Consulting providers: Toby Chaves; Karthik Anthony; Gilles Martinez Discharging Clinician: Anna Cameron Patient Disposition: Home Activity: as tolerated Diet: heart healthy Discharge Instructions: patient will call ENT and an sports development officer for out patient follow up, patient will follow up Dr. Anthony in 1 week to check for her calcium levels, patient to follow up with her primary care provider as soon as possible, patient is instructed if any symptoms redevelop to go to nearest ER. Patient Instructions: Antibiotic Form Patient Language: [place] Stand Alone Forms: General Discharge Information Follow-up/Referrals: Karthik Anthony MD [Physician] - Gilles Martinez MD [Physician] - Toby Chaves MD [Physician] - PHYSICIAN,[employer] [Primary Care Provider] - Discharge Medications: New calcitonin (salmon) 200 unit/actuation [place],Non-Aerosol 1 spray intranasal QAM Qty: 1 0RF amlodipine [Norvasc] 5 mg Tablet 5 mg PO DAILY Qty: 30 0RF No Action No Home Medications Date of admission: 09/06/24 16:40 Primary Care Provider: PHYSICIAN,[employer] Admitting Provider: Laura Segundo Attending physician on admission: Laura Segundo Condition: Stable
--- NOTE | 2024-09-08 16:24 | P.PNIM_ITS ---
Progress Note: A&P Assessment and Plan (1) Dizziness: Code(s): R42 - Dizziness and giddiness Status: Acute Assessment and Plan: * Exact etiology uncertain. * Now resolved after receiving meclizine, suggesting BPV * Trend labs, vitals * Telemetry * Fall precautions * Check baseline routine labs, (lipids, TSH, PTH, magnesium, UA, trend trops, A1C) (2) Hypercalcemia: Code(s): E83.52 - Hypercalcemia Status: Acute Assessment and Plan: * Elevated at 12.5. * Ionized calcium pending * Telemetry * EKG without is a make changes. There is a first-degree AV block. * Calcitonin nasal spray initiated daily with 1st dose now Plan 73 y/o female who has not seen the primary care provider in over 20 years presented with dizziness, head and neck CTA are unremarkable CTA head and neck. Percent stenosis per NASCET criteria bilaterally is 0%. patient sysptoms did improve with meclizine suggesting possible BPV, patient serum calcuim is elevated 12.7, this morning her calcium level is 13 and PTH intact levels are hi gh her thyroid and vitamin d levels are normal, US of neck showed 2.9 x 1.8 x 1.3 cm solid hypoechoic nodule along side but likely peripheral to the deep lower pole of the left thyroid which would favor a parathyroid adenoma over a TI RADS 5 left thyroid nodule. Could consider either percutaneous ultrasound-guided fine-needle aspiration or parathyroid scintigraphy for further evaluation. today patient stats feels little better, was seen by Dr. Anthony, an Oncologist and suggested patient has hyper parathyroidism, gave Zometa infusion and recommended para thyoidectomy and consult ENT and endocrinology, will monitor patient overnight and possibly discharge patient tomorrow. Subjective Date/time seen: 09/08/24 16:24 Interval history: Dizzy H&P-Narrative: This is a very pleasant 73-year-old female patient who reportedly has not seen a doctor in greater than 20 years because she ?is not ill. She has 6 out no routine screening or medical care. She is accompanied by her daughters at the bedside. Patient states today she had a temporary sensation of dizziness at rest that was made worse with movement. She stated the dizziness made her nauseated. She denied any symptoms of chest pain, dizziness, palpitations, nausea, vomiting, diarrhea, headache. She has not recently had any falls or hit her head. She denies any other complaints and states that now her symptoms are resolved. Patient does not take any home medications that are prescribed as she does not see medical provider but she does take multiple different [id number]-zviqsqp vitamins. In the emergency room a workup was performed and this included labs, imaging and EKG. EKG showing normal sinus rhythm with a first-degree AV block at a rate of 62 beats per minute. Patient's vital signs are stable, labs with unremarkable CBC and metabolic panel with exception of calcium noted at 12.5. Albumin is normal at 4.0. Ionized calcium is ordered and is pending. A stat CMP repeat after giving IV fluids was ordered and is pending. CTA head and neck without any acute findings. 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 Chest x-ray is normal. Patient without any acute complaints at this time but is am able to admission for hydration and possible treatment with bisph osphonates and further workup as she does not seek out regular medical care. 73 y/o female who has not seen the primary care provider in over 20 years presented with dizziness, head and neck CTA are unremarkable CTA head and neck. Percent stenosis per NASCET criteria bilaterally is 0%. patient sysptoms did improve with meclizine suggesting possible BPV, patient serum calcuim is elevate d 12.7, this morning her calcium level is 13 and PTH intact levels are high her thyroid and vitamin d levels are normal, US of neck showed 2.9 x 1.8 x 1.3 cm solid hypoechoic nodule along side but likely peripheral to the deep lower pole of the left thyroid which would favor a parathyroid adenoma over a TI RADS 5 left thyroid nodule. Could consider either percutaneous ultrasound-guided fine-needle aspiration or parathyroid scintigraphy for further evaluation. today patient stats feels little better, was seen by Dr. Anthony, an Oncologist and suggested patient has hyper parathyroidism, gave Zometa infusion and recommended para thyoidectomy and consult ENT and endocrinology, will monitor patient overnight and possibly discharge patient tomorrow. Review of Systems Review of Systems: All systems reviewed & are unremarkable except as noted in HPI and below Exam Narrative: Patient is comfortable, NAD HEENT: eyes are clear and none icteric LUNGS:CTA HEART: RR S1S2 ABD: BS+, Soft and nontender Lower extremities: no edema SKIN: nonjaundiced Neuro: grossly intact. Objective Data Vital Signs Vital Signs: Vital Signs - 24 hr 09/07/24 20:00 09/07/24 20:00 09/07/24 21:04 Temperature 36.7 C Pulse Rate 59 L 73 Respiratory Rate 18 Blood Pressure 213/64 H Pulse Oximetry 99 Oxygen Delivery Room Air 09/07/24 23:08 09/08/24 00:00 09/08/24 04:00 Temperature Pulse Rate 64 67 Respiratory Rate Blood Pressure 172/50 H Pulse Oximetry Oxygen Delivery 09/08/24 05:43 09/08/24 08:00 09/08/24 08:00 Temperature Pulse Rate 74 65 Respiratory Rate 16 Blood Pressure 139/68 Pulse Oximetry 98 Oxygen Delivery Room Air 09/08/24 08:07 09/08/24 10:42 09/08/24 12:00 Temperature 36.8 C Pulse Rate 80 86 Respiratory Rate 16 Blood Pressure Pulse Oximetry 97 96 Oxygen Delivery Room Air 09/08/24 12:05 09/08/24 14:00 Temperature 36.3 C L Pulse Rate 77 74 Respiratory Rate 16 Blood Pressure 152/67 H 133/51 L Pulse Oximetry 97 Oxygen Delivery Intake/Output Intake/Output: Intake & Output 09/05/24 09/06/24 09/07/24 09/08/24 23:59 23:59 23:59 23:59 Intake Total 1000 1320 720 480 Output Total 900 0 Balance 1000 420 720 480 Meds/Results Medications: Active Medications Generic Name Dose Route Start Last Admin Trade Name Freq PRN Reason Stop Dose Admin Amlodipine Besylate 5 mg 09/08/24 09:00 09/08/24 10:32 Amlodipine Besylate 5 Mg Tablet PO 5 mg DAILY ABDIRIZAK Administration Calcitonin [place] 1 spray 09/06/24 01:10 09/08/24 08:21 Calcitonin Nasal 200 Units/[place] 3.7 Ml Bottle NASAL 1 spray QAM ABDIRIZAK Administration Hydralazine HCl 10 mg 09/07/24 21:16 09/07/24 21:28 Hydralazine Hcl 20 Mg/Ml Vial IV PUSH 10 mg Q8H PRN Administration Blood Pressure - High Sodium Chloride 1,000 mls @ 100 mls/hr 09/08/24 08:45 09/08/24 10:32 Normal Saline Iv IV CONT 100 mls/hr .Q10H ABDIRIZAK Administration Radiology Results: ITS Impressions Chest X-Ray 09/05/24 20:57 IMPRESSION: No focal infiltrate or effusion. Head/Neck CTA 09/05/24 23:07 IMPRESSION: 1. Unremarkable CTA head and neck. Percent stenosis per NASCET criteria bilaterally is 0% Head/Neck Ultrasound 09/07/24 13:44 IMPRESSION: 1. 2.9 x 1.8 x 1.3 cm solid hypoechoic nodule along side but likely peripheral to the deep lower pole of the left thyroid which would favor a parathyroid adenoma over a TI RADS 5 left thyroid nodule. Could consider either percutaneous ultrasound-guided fine-needle aspiration or parathyroid scintigraphy for further evaluation. 2. Incompletely visualized 1.5 cm Ti RADS 3 right thyroid nodule for which annual ultrasound follow-up would be recommended. Labs Labs: Laboratory Results - last 24 hr 09/08/24 05:47 WBC 7.7 RBC 4.30 Hgb 13.7 Hct 42.9 MCV 99.8 MCH 31.9 MCHC 31.9 L RDW 13.4 Plt Count 198 MPV 11.4 H Sodium 138 Potassium 4.2 Chloride 111 H Carbon Dioxide 21 L Anion Gap 6 BUN 13 Creatinine 1.24 H Estim Creat Clear Calc 35 Estimated GFR 42 L Glucose 83 Calcium 12.7 H* Magnesium 2.2 Total Bilirubin 0.9 AST 20 ALT 13 Alkaline Phosphatase 119 Total Protein 7.0 Albumin 3.7 Quality VTE Prophylaxis VTE prophylaxis: mechanical ordered
[2024-09-08 16:58] LABS: Immunoglobulin A 366 mg/dL (70-320); Immunoglobulin G 1134 mg/dL (600-1540); Immunoglobulin M 137 mg/dL (50-300)
[2024-09-08 19:39] LABS: Hematocrit 44.3 % (35.0-45.0); Hemoglobin 14.1 g/dL (11.7-15.5); MCH 31.5 pg (27.0-33.0); MCV 98.9 fL (80.0-100.0); RDW 12.7 % (11.0-15.0); Red Blood Cell Count 4.48 Million/uL (3.80-5.10)
[2024-09-09] VITALS: PULSE 66
[2024-09-09 04:00] VITALS: PULSE 47
[2024-09-09 05:14] VITALS: BP 162/76; PULSE 67; RESP 18; TEMP 36.7; O2SAT 95
[2024-09-09 05:40] LABS: Hematocrit 40.7 % (37.0-47.0); Hemoglobin 13.2 g/dL (12.0-15.0); Mean Corpuscular HGB Conc 32.4 g/dl (32-36); Mean Corpuscular Hemoglobin 32.2 pg (26-34); Mean Corpuscular Volume 99.3 fl (80-100); Platelet Count Result 194 k/mm3 (150-375); Red Cell Distribution Width 13.3 % (11.5-14.5); White Blood Count 7.9 K/mm3 (4.5-10.0)
[2024-09-09 06:07] LABS: Alanine Aminotransferase 12 U/L (6-35); Albumin Level 3.6 g/dL (3.5-5.1); Alkaline Phosphatase 109 U/L (38-126); Anion Gap 5 mmol/L (4-12); Aspartate Amino Transferase 17 U/L (14-36); Bilirubin,Total 0.9 mg/dL (0.2-1.3); Blood Urea Nitrogen 11 mg/dL (7-17); Calcium 12.3 mg/dL (8.4-10.2); Carbon Dioxide 19 mmol/L (22-30); Chloride 115 mmol/L (98-107); Estimated CRCL calculation 38 ml/min; Estimated Glomerular Filt Rate 47; Glucose 85 mg/dL (65-110); Magnesium 2.2 mg/dL (1.6-2.3); Potassium 4.2 mmol/L (3.4-5.0); Sodium 139 mmol/L (137-145)
[2024-09-09 08:00] VITALS: PULSE 60; PULSE 67; RESP 18; O2SAT 95
[2024-09-09] MEDS: CALCITONIN NASAL 200 UNITS/SPRAY 3.7 ML BOTTLE 1 SPRAY NASAL (09:05)
[2024-09-09] MEDS: amLODIPine BESYLATE 5 MG TABLET PO (09:05)
--- NOTE | 2024-09-09 09:09 | PM.DS ---
DS: Admitting Diagnosis Discharge Date 09/09/24 Admitting Diagnosis Dizzy DS: Discharge Diagnosis Discharge Diagnosis (1) Dizziness: Code(s): R42 - Dizziness and giddiness Status: Acute Assessment and Plan: Exact etiology uncertain. Now resolved after receiving meclizine, suggesting BPV Trend labs, vitals Telemetry Fall precautions Check baseline routine labs, (lipids, TSH, PTH, magnesium, UA, trend trops, A1C) (2) Hypercalcemia: Code(s): E83.52 - Hypercalcemia Status: Acute Assessment and Plan: Elevated at 12.5. Ionized calcium pending Telemetry EKG without is a make changes. There is a first-degree AV block. Calcitonin nasal spray initiated daily with 1st dose now Plan 73 y/o female who has not seen the primary care provider in over 20 years presented with dizziness, head and neck CTA are unremarkable CTA head and neck. Percent stenosis per NASCET criteria bilaterally is 0%. patient sysptoms did improve with meclizine suggesting possible BPV, patient serum calcuim is elevated 12.7, this morning her calcium level is 13 and PTH intact levels are high her thyroid and vitamin d levels are normal, US of neck showed 2.9 x 1.8 x 1.3 cm solid hypoechoic nodule along side but likely peripheral to the deep lower pole of the left thyroid which would favor a parathyroid adenoma over a TI RADS 5 left thyroid nodule. Could consider either percutaneous ultrasound-guided fine-needle aspiration or parathyroid scintigraphy for further evaluation. today patient stats feels little better, was seen by Dr. Anthony, an Oncologist and suggested patient has hyper parathyroidism, gave Zometa infusion and recommended para thyoidectomy and consult ENT and endocrinology, will monitor patient overnight and possibly discharge patient tomorrow. DS: Summary Hospital Course Hospital Course: 73 y/o female who has not seen the primary care provider in over 20 years presented with dizziness, head and neck CTA are unremarkable CTA head and neck. Percent stenosis per NASCET criteria bilaterally is 0%. patient sysptoms did improve with meclizine suggesting possible BPV, patient serum calcuim is elevated 12.7, this morning her calcium level is 13 and PTH intact levels are high her thyroid and vitamin d levels are normal, US of neck showed 2.9 x 1.8 x 1.3 cm solid hypoechoic nodule along side but likely peripheral to the deep lower pole of the left thyroid which would favor a parathyroid adenoma over a TI RADS 5 left thyroid nodule. Could consider either percutaneous ultrasound-guided fine-needle aspiration or parathyroid scintigraphy for further evaluation. today patient stats feels little better, was seen by Dr. Anthony, an Oncologist and suggested patient has hyper parathyroidism, gave Zometa infusion and recommended para thyoidectomy and consult ENT and endocrinology, today patient stats she is feeling better her daughter has contacted ENT and paint roller cover machine setter, will discharge home today. Time Spent with Patient Time attestation: Total time spent providing and/or coordinating discharge services: Exam Narrative: Patient is comfortable, NAD HEENT: eyes are clear and none icteric LUNGS:CTA HEART: RR S1S2 ABD: BS+, Soft and nontender Lower extremities: no edema SKIN: nonjaundiced Neuro: grossly intact. DS: Data Data Completed and Pending Labs on day of discharge: Labs from last 24 hours 09/09/24 09/09/24 09/09/24 05:31 05:31 05:31 WBC 7.9 RBC 4.10 L Hgb 13.2 Hct 40.7 MCV 99.3 MCH 32.2 MCHC 32.4 RDW 13.3 Plt Count 194 MPV 11.0 H Hemoglobinopathy Red Blood Count Hemoglobinopathy Hct Hemoglobinopathy Hgb Hemoglobinopathy MCV Hemoglobinopathy MCH Hemoglobinopathy RDW Sodium 139 Potassium 4.2 Chloride 115 H Carbon Dioxide 19 L Anion Gap 5 BUN 11 Creatinine 1.13 H Estim Creat Clear Calc 38 Estimated GFR 47 L Glucose 85 Calcium 12.3 H* Magnesium 2.2 Total Bilirubin 0.9 AST 17 ALT 12 Alkaline Phosphatase 109 Total Protein 7.0 Pending Albumin 3.6 Pending Wlgcy-1-Yhekplaiy Pending Rojfu-2-Crcempvse Pending Gquo-5-Cjxxsgci Pending Oedz-5-Kzrbrsdu Pending Gamma Globulins Pending PEP Interpretation Pending Immunoglobulin A Immunoglobulin G Immunoglobulin M Serum Immunofixation Pending 09/07/24 18:29 WBC RBC Hgb Hct MCV MCH MCHC RDW Plt Count MPV Hemoglobinopathy Red Blood Count 4.48 Hemoglobinopathy Hct 44.3 Hemoglobinopathy Hgb 14.1 Hemoglobinopathy MCV 98.9 Hemoglobinopathy MCH 31.5 Hemoglobinopathy RDW 12.7 Sodium Potassium Chloride Carbon Dioxide Anion Gap BUN Creatinine Estim Creat Clear Calc Estimated GFR Glucose Calcium Magnesium Total Bilirubin AST ALT Alkaline Phosphatase Total Protein Albumin Dqwvc-0-Sflmtcyzo Fgjci-6-Alwaehsza Hurd-2-Dwbcktli Thzw-4-Fdwaukxp Gamma Globulins PEP Interpretation Immunoglobulin A 366 H Immunoglobulin G 1134 Immunoglobulin M 137 Serum Immunofixation Discharge Plan Discharge Attending physician on discharge: Laura Segundo Consulting providers: Toby Chaves; Karthik Anthony; Gilles Martinez Discharging Clinician: Anna Cameron Patient Disposition: Home Activity: as tolerated Diet: heart healthy Discharge Instructions: patient will call ENT and an paint roller cover machine setter for out patient follow up, patient will follow up Dr. Anthony in 1 week to check for her calcium levels, patient to follow up with her primary care provider as soon as possible, patient is instructed if any symptoms redevelop to go to nearest ER. Patient Instructions: Antibiotic Form, Amlodipine (By mouth), Calcitonin (Into the nose), Parathyroid Adenoma (GEN) Patient Language: Frisian Stand Alone Forms: General Discharge Information Follow-up/Referrals: Karthik Anthony MD [Physician] - Gilles Martinez MD [Physician] - Toby Chaves MD [Physician] - PHYSICIAN,AQUACULTURE AND FISHERIES PROFESSOR [Primary Care Provider] - Discharge Medications: New amlodipine [Norvasc] 5 mg Tablet 5 mg PO DAILY Qty: 30 0RF calcitonin (salmon) 200 unit/actuation [place],Non-Aerosol 1 spray intranasal QAM Qty: 1 0RF Date of admission: 09/06/24 16:40 Primary Care Provider: PHYSICIAN,AQUACULTURE AND FISHERIES PROFESSOR Admitting Provider: Laura Segundo Attending physician on admission: Laura Segundo Condition: Stable
[2024-09-09 11:53] LABS: Kappa\\Lambda Light Chains 1.96 (0.26-1.65); Lambda Light Chain 29.9 mg/L (5.7-26.3)
[2024-09-10 03:38] LABS: Protein, Total 6.3 g/dL (6.1-8.1)
[2024-09-10 23:42] LABS: Neurofilament Light Chain Plas 8.04 pg/mL (<12.52)
[2024-09-11 11:18] LABS: Vitamin D 1,25 (OH)2 Total 66 pg/mL (18-72); Vitamin D2 1,25 (OH)2 <8 pg/mL; Vitamin D3 1,25 (OH)2 66 pg/mL
[2024-09-11 20:54] LABS: Immunofixation, Serum Normal pattern.
[2024-09-12 17:31] LABS: Albumin 3.5 g/dL (3.8-4.8); Alpha 1 Globulin 0.3 g/dL (0.2-0.3); Alpha 2 Globulin 0.8 g/dL (0.5-0.9); Beta 1 Globulin 0.4 g/dL (0.4-0.6)
[2024-09-14 14:48] LABS: Parathyroid Hormone Related Pr 12 pg/mL (11-20)
== END 2024-09-09 11:15 | disposition home or self-care (01) | DRG 149 ==
LOC: ANHED 23:38 → ANH3MED 23:54
PROVIDERS: Internal Medicine Hematology & Oncology; Nurse Practitioner Adult Health; Admitting Provider Internal Medicine; Emergency Provider Emergency Medicine; Visit Provider Family Medicine
DX: H81.10 Benign paroxysmal vertigo, unspecified ear (principal); D35.1 Benign neoplasm of parathyroid gland; E21.3 Hyperparathyroidism, unspecified; I10 Essential (primary) hypertension; F17.210 Nicotine dependence, cigarettes, uncomplicated; I44.0 Atrioventricular block, first degree
CPT/HCPCS: 36415; 70496; 70498; 71046; 76536; 80053; 80061; 81001; 82306; 82330; 82652; 82784; 83021; 83519; 83540; 83550; 83735; 83883; 83884; 83970; 84155; 84165; 84443; 85025; 85027; 86334; 87086; 87186; 93005; 96361; 96374; 96375; 99285; A9270; G0378; J0360; J3489; J7030; J7120; Q9967

== ENCOUNTER 2024-10-17 10:03 | Outpatient (CLI) | payer MEDICARE, OTHER, SELFPAY ==
--- NOTE | ~2024-10-17 | NM_ITS ---
EXAMINATION: NM parathyroid w imaging DATE: 10/17/2024 14:12 INDICATION: Benign neoplasm of the parathyroid gland TECHNIQUE: 19.4 mCi Tc99m sestamibi (Cardiolite) was administered by intravenous route. Anterior imag es of the neck were obtained at 10 minutes and 2 hours. COMPARISON: CT dated 09/05/2024 and ultrasound dated 09/07/2024 FINDINGS/IMPRESSION: There is a relatively large focus of persistent uptake along the posterior margin of the left thyroid lobe in the region of the mass identified on prior ultrasound and also seen on the earlier CT consis tent with a parathyroid adenoma. No other foci of persistent delayed activity identified. Reviewed, dictated and finalized at location B.
== END 2024-10-17 10:04 | disposition home or self-care (01) ==
PROVIDERS: PCP Internal Medicine; Visit Provider Otolaryngology
DX: D35.1 Benign neoplasm of parathyroid gland (principal)
CPT/HCPCS: 78070; A9500

== ENCOUNTER 2025-03-03 10:18 | Outpatient (CLI) | payer MEDICARE, OTHER, SELFPAY ==
[2025-03-03 14:18] LABS: Hematocrit 43.0 % (37.0-47.0); Hemoglobin 13.8 g/dL (12.0-15.0); Immature Granulocyte Percent A 0.2 % (0-0.5); Lymphocytes Absolute Auto 2.19 K/mm3 (0.9-3.2); Mean Corpuscular HGB Conc 32.1 g/dl (32-36); Mean Corpuscular Hemoglobin 32.0 pg (26-34); Mean Corpuscular Volume 99.8 fl (80-100); Nucleated Red Blood Cells Absolute Auto 0.000 K/mm3 (0.0-0.012); Nucleated Red Blood Cells Perc 0.0 % (0.0-0.2); Platelet Count Result 229 k/mm3 (150-375); Red Blood Count 4.31 M/mm3 (4.2-5.4); White Blood Count 9.9 K/mm3 (4.5-10.0)
[2025-03-03 15:07] LABS: Alanine Aminotransferase 13 U/L (6-35); Albumin Level 4.1 g/dL (3.5-5.1); Alkaline Phosphatase 93 U/L (38-126); Anion Gap 8 mmol/L (4-12); Aspartate Amino Transferase 35 U/L (14-36); Bilirubin,Total 0.9 mg/dL (0.2-1.3); Blood Urea Nitrogen 19 mg/dL (7-17); Calcium 12.5 mg/dL (8.4-10.2); Carbon Dioxide 21 mmol/L (22-30); Chloride 109 mmol/L (98-107); Estimated Glomerular Filt Rate 45; Glucose 77 mg/dL (65-110); Potassium 4.5 mmol/L (3.4-5.0); Sodium 138 mmol/L (137-145); Thyroid Stimulating Hormone 0.040 uIU/mL (0.465-4.680); Total Protein 7.8 g/dL (6.3-8.2)
[2025-03-03 18:24] LABS: Add Urine Microscopic? YES; Appearance Urine Turbid (Clear); Glucose Urine UA Negative (Negative); Leukocyte Esterase Ur 3+ LEU/UL (Negative); Nitrate Urine Positive (Negative); Specific Grav Ur 1.011 (1.001-1.035)
[2025-03-06 13:08] LABS: Calcium, Ionized 6.5 mg/dL (4.5-5.6)
== END 2025-03-03 10:19 | disposition home or self-care (01) ==
LOC: ANHGOSHLAB 10:20
PROVIDERS: PCP Internal Medicine; Visit Provider Clinical Nurse Specialist
DX: E83.52 Hypercalcemia (principal); D35.1 Benign neoplasm of parathyroid gland; I10 Essential (primary) hypertension; R42 Dizziness and giddiness; E04.1 Nontoxic single thyroid nodule; R30.0 Dysuria
CPT/HCPCS: 36415; 80053; 81001; 82330; 84443; 85025

== ENCOUNTER 2025-04-11 10:06 | Outpatient (CLI) | payer MEDICARE, OTHER, SELFPAY ==
--- NOTE | 2025-04-11 10:46 | ECG_ITS ---
Test Date: 2025-04-11 10:50:10 Measurements Intervals Keeler Rate: 53 P: 52 KS: 209 QRS: 10 QRSD: 89 T: 40 QT: 358 QTc: 339 Interpretive Statements SINUS BRADYCARDIA WITH FIRST DEGREE AV BLOCK POOR R WAVE PROGRESSION BASELINE ARTIFACT- I, II, III, AVR, AVL, AVF, V1-V6 BORDERLINE ECG Compared to ECG 09/05/2024 20:31:34 HEART RATE HAS DECREASED Electronically Signed On 04-11-2025 11:00:57 REGISTERED SAFETY ENGINEER by Dawood Ruffin D.O.
== END 2025-04-11 10:07 | disposition home or self-care (01) ==
LOC: ANHSURGERY 10:29
PROVIDERS: PCP Internal Medicine; Visit Provider Otolaryngology
DX: Z01.810 Encounter for preprocedural cardiovascular examination (principal); R94.31 Abnormal electrocardiogram [ECG] [EKG]; I10 Essential (primary) hypertension
CPT/HCPCS: 93005

== ENCOUNTER 2025-04-18 01:17 | Day surgery (SDC) | payer MEDICARE, SELFPAY ==
--- NOTE | 2025-04-03 15:06 | PC.NURSE ---
[facility] has started construction of its new state of the art ER which will open Spring 2026. With this, we anticipate parking may be a challenge for some our surgical patients and families. Parking spaces are limited but are available for all Surgical, obstetrics, and ER patients sharing this lot. If you arrive and find you are having a hard time finding a parking space, please note that we understand the challenges, please drive around the hospital and park near Hospital Entrance 1. When you enter this entrance, you can ask a volunteer to direct or take you back to the surgical waiting area to check in. We appreciate everyone?s understanding of these expected challenges while we build for your future. Report to the Outpatient Waiting Room, entrance under the green pavilion located off [address], at time _6 AM on date _04/18/25 . Planned Procedure Time: _7:30 AM .? Time changes happen often and if your time is changed the preop area will call you the afternoon before. - You and your visitor will be asked to self-screen and do not enter if you have any COVID symptoms. Please call surgeon if you need to reschedule. - A mask is optional within the hospital at this time. Patients may have clear liquids (water, carbonated beverages, clear teas, apple juice) until 3 hours prior to surgery( 4:30 AM ) with a maximum of 20 ounces. - No food from midnight until time of surgery and no smoking, or chewing tobacco (or any form of nicotine). No chewing gum, candy or mints. Take only the following medications with a SIP of water on the morning of surgery: __AMLODIPINE DO NOT STOP ANY OF YOUR OTHER PRESCRIPTION MEDICATIONS PRIOR TO SURGERY EXCEPT THE FOLLOWING Hold all vitamins and supplements for 3 days per anesthesiologist. Medications to discontinue per physician NONE Please no make-up, nail german, hairspray, perfume, deodorant, or body powder the day of surgery.? No jewelry (including any body piercings) or valuables the day of surgery, leave them at home.? Please take a shower or bath the night before, or the morning of, surgery with an antibacterial soap.? Wear comfortable, loose fitting clothing.? Children are encouraged to wear pajamas. - Jewelry must be removed prior to entering the operating room.? Rings and piercings that are not removed may be cut off. - The hospital will not accept responsibility for valuables.? - Please leave all valuables, including medications, at home the day of surgery. If you are going home after surgery, a licensed mechanic welder truck driver must drive you home.? - NO public transportation without another adult if you receive anesthesia. - We recommend that an adult stay with you for 24 hours following discharge. - We also recommend that you do not drive, make important decision, drink alcoholic beverages, or take any drugs that were not prescribed by your health care provider for at least 24 hours after your discharge time. Follow any additional instructions given to you from your surgeon. Telephone instructions given to _DAUGHTER LANDEN ROCA and asked if any additional questions and then verbalized understanding. Patient advised to call surgeon office or pre surgery nurse liaison [phone] if any additional questions.
[2025-04-03 15:15] VITALS: BMI 28.3
[2025-04-18] VITALS (15 sets, daily range): BP systolic 114–179; BP diastolic 55–100; PULSE 69–98; RESP 11–18; TEMP 36.1–36.3; O2SAT 99–100; BMI 28.3
--- NOTE | 2025-04-18 06:50 | P.PNAN_ITS ---
Anes - Initial Pre Proc Eval Procedure: Operation Date: 04/18/25 07:30 Proposed Procedures p Parathyroidectomy - Rodrick Flores MD Date/Time: 04/18/25 06:50 Surgeon: Rodrick Flores MD Pre Op Diagnosis: prim hyperparathyroidism Patient Data Age: 74 Gender: F Height: 1.65 m Weight: 77.2 kg Allergies Allergy/AdvReac Type Severity Reaction Status Date / Time Sulfa (Sulfonamide Allergy Itching Verified 04/03/25 15:00 Antibiotics) Home Medications ?Medication ?Instructions ?Recorded ?Confirmed ?Type amlodipine 5 mg tablet (Norvasc) 5 mg PO DAILY #90 tab s 12/08/24 04/03/25 Rx Patient hx anesthesia problems: none Family hx anesthesia problems: none Results Review: All pre-operative results and documents have been reviewed as part of the pre- operative evaluation. [facility] Past Medical History Medical History Hyperparathyroidism, primary Parathyroid adenoma Hypercalcemia Dizziness Family History Family History Mother Asthma Hypertension Father Congestive heart failure Hypertension Social History Social History Smoking packs per day: 0.5 Smoking cigarettes per day: 10.0 Years smoked: 20 Smoking pack-years: 10.00 Smoking status: Former smoker Tobacco type: cigarettes Smoking end date: 09/01/24 Alcohol intake: never Substance use: never Lack of Transportation: No Lack of Food: Never True Current Housing: I Have Housing Concerned About Future Housing: No Difficulty Paying Gas/Electric Bills: No Difficulty Paying for Meds: No Currently Unemployed: No Education: Trade/Vocational Certificate Difficulty w/ Childcare or Family Care: No Living arrangements: alone Spiritual care concerns: No Anes - Eval Final PreProcedure Day of Procedure 04/18/25 06:50 Patient weight: overweight Heart: regular rate and rhythm Lungs: clear to auscultation Airway: Mallampati scale class II Neurological: alert and oriented Last oral intake: >/= 8 hours ASA classification: III Emergent: no Anesthetic plan: proceed Anesthesia type and monitoring: general ETT and standard monitoring Results Review: All pre-operative results and documents have been reviewed as part of the pre- operative evaluation. Informed Consent: The patient's anesthetic plan and its attendant risks and benefits were discussed with the patient/family/POA. Questions were solicited and answers provided to the satisfaction of the patient/family/POA.
[2025-04-18] MEDS: LACTATED RINGERS 1,000 ML 30 ML IV CONT ×2 (07:00→10:08)
[2025-04-18] MEDS: ACETAMINOPHEN 500 MG TABLET 1000 MG PO (07:10)
--- NOTE | 2025-04-18 07:18 | P.HP_ITS ---
History of Present Illness History of Present Illness Consent: Risks, benefits, and alternatives have been discussed and questions answered. Patient agrees to proceed with procedure. Chief complaint: prim hyperparathyroidism Narrative: Dalia Zaragoza is a 74 year old female with primary hyperparathyroidism. Imaging shows a likely left sided parathyroid adenoma. Surgical management was recommended and the patient presents for this today. Review of Systems Review of Systems: All systems reviewed & are unremarkable except as noted in HPI and below PMFSH Past Medical History Medical History Hyperparathyroidism, primary Parathyroid adenoma Hypercalcemia Dizziness Family History Family History Mother Asthma Hypertension Father Congestive heart failure Hypertension Social History Social History Smoking packs per day: 0.5 Smoking cigarettes per day: 10.0 Years smoked: 20 Smoking pack-years: 10.00 Smoking status: Former smoker Tobacco type: cigarettes Smoking end date: 09/01/24 Alcohol intake: never Substance use: never Lack of Transportation: No Lack of Food: Never True Current Housing: I Have Housing Concerned About Future Housing: No Difficulty Paying Gas/Electric Bills: No Difficulty Paying for Meds: No Currently Unemployed: No Education: Trade/Vocational Certificate Difficulty w/ Childcare or Family Care: No Living arrangements: alone Spiritual care concerns: No Meds Home Medications and Allergies Home Medications ?Medication ?Instructions ?Recorded ?Confirmed ?Type amlodipine 5 mg tablet (Norvasc) 5 mg PO DAILY #90 tab s 12/08/24 04/03/25 Rx Allergies Allergy/AdvReac Type Severity Reaction Status Date / Time Sulfa (Sulfonamide Allergy Itching Verified 04/03/25 15:00 Antibiotics) Exam Narrative: General: Well developed, well nourished. No apparent distress. Voice strong. Head: Normocephalic, atraumatic. Eyes: Sclerae and conjunctivae clear. Pupils equal and round. Full extraocular motility. Ears: Normal pinnae. Nose: Nasal dorsum is straight. No drainage or crusting at nares. Normal mucosa. Oral Cavity / Oropharynx: Moist mucous membranes. No suspicious lesions. Posterior pharynx is clear without drainage. Neck: Supple, nontender. No palpable lymphadenopathy, neck mass, or thyromegaly. Lungs: Respirations unlabored. Cardiovascular: Extremities warm and well perfused. Neurologic: Alert, oriented. Moves all extremities. Facial sensation intact to light touch. Face symmetric. Palate elevates symmetrically. Tongue midline. Assessment and Plan Assessment and plan (1) Hyperparathyroidism, primary: Code(s): E21.0 - Primary hyperparathyroidism Status: Acute Plan OR today for parathyroidectomy. The risks, benefits, and alternatives to surgery were discussed. The risks of pain, bleeding, infection, scarring, no improvement in symptoms, worsening symptoms, recurrent symptoms, hematoma, seroma, poor wound healing, injury to the recurrent laryngeal nerves, injury to the superior laryngeal nerves, temporary or permanent voice changes, airway compromise, temporary or permanent hypocalcemia, and the possibility of failure to adequately decrease her PTH were all reviewed. The patient expressed understanding and wishes to proceed with surgery.
--- NOTE | 2025-04-18 07:24 | WPDHPUPDATE1 ---
History and Physical Update Update Date/Time: 04/18/25 07:24 History and Physical has been reviewed, including an updated exam of the patient. There are NO changes in the patient's condition. Risks, benefits, and alternatives have been discussed and questions answered. Patient agrees to proceed with procedure.
[2025-04-18 08:06] LABS: Parathyroid Intact 392.9 pg/mL (14.5-75.2)
[2025-04-18] MEDS: LIDO 1%/EPINEPHRINE 1:100,000 50 ML VIAL (08:51)
--- NOTE | 2025-04-18 09:04 | S_PTH ---
PATIENT: Dalia Zaragoza LOC: [facility] U#:[id number] AGE/SX: 74/F ROOM: RE04/18/[address]: Rodrick Flores MD : 1950 BED: DIS: 04/18/2025 SPEC #: [id number] RECD: 04/18/25 09:10 STATUS: JERRI REQ #: [id number] ATUL: 04/18/25 09:[address]: Rodrick Flores DEPT: [facility] Surgical RECD BY: Katelyn Sutton ENTERED: 04/18/25 09:10 SP TYPE: Surgical OTHR DR: Krzysztof Olvera, Tissues: FSA1 - Frozen Section B - Parathyroid Procedures: Hematoxylin and Eosin Stain Frozen Section Gross and Microscopic Level 4
--- NOTE | 2025-04-18 09:10 | SUR.OPER ---
FROZEN SECTION SPECIMEN SENT WITH DAVID AND RECEIVED IN PATHOLOGY BY DARIAN
--- NOTE | 2025-04-18 09:23 | SUR.OPER ---
Blood draw sent with Lis and received by Syl.
[2025-04-18 09:37] LABS: Alanine Aminotransferase 12 U/L (6-35); Albumin Level 3.3 g/dL (3.5-5.1); Alkaline Phosphatase 88 U/L (38-126); Anion Gap 2 mmol/L (4-12); Aspartate Amino Transferase 18 U/L (14-36); Bilirubin,Total 0.8 mg/dL (0.2-1.3); Blood Urea Nitrogen 18 mg/dL (7-17); Calcium 12.0 mg/dL (8.4-10.2); Carbon Dioxide 19 mmol/L (22-30); Chloride 115 mmol/L (98-107); Estimated CRCL calculation 42 ml/min; Estimated Glomerular Filt Rate 51; Glucose 95 mg/dL (65-110); Potassium 4.7 mmol/L (3.4-5.0); Sodium 136 mmol/L (137-145); Total Protein 6.4 g/dL (6.3-8.2)
[2025-04-18 09:51] LABS: Parathyroid Intact 73.0 pg/mL (14.5-75.2)
--- NOTE | 2025-04-18 10:11 | P.OP_ITS ---
Procedure Note - Detailed Date of Procedure 04/18/25 Pre-op Diagnosis primary hyperparathyroidism Post-op Diagnosis Same Procedure Performed Parathyroidectomy Surgeon Parvez Flores MD Anesthesia General Findings Large left inferior parathyroid adenoma Intraop PTH dropped from 393 to 73 Left recurrent laryngeal nerve stimulating normally at 0.5mA at the conclusion of the case Description of Procedure Patient was identified in the preoperative area, and informed written consent was obtained. The patient was transported to the operating room and placed supine on the operating room table. The anesthesiology service induced general anesthesia and intubated the patient with a NIM tube. The laryngeal nerve monitoring system was set up and was confirmed to be functioning properly. The patient was then positioned, prepped, and draped. A surgical time-out was conducted confirming the patient's identity and the procedure to be performed. A 4cm incision was planned 1cm below the cricoid cartilage in a natural skin crease. 1% lidocaine with epinephrine was injected. The skin was incised with a 15 blade. The incision was carried through the subcutaneous fat and platysma. Small subplatysmal flaps were raised superiorly and inferiorly. The strap muscl es were identified and divided in the midline. Attention was turned to the left thyroid lobe. The strap muscles were lifted off the thyroid. The thyroid was retracted medially and the inferior pole was mobilized. Immediately deep to the inferior pole, a large parathyroid was encountered. This was dissected free from the surrounding tissue and excised. Just medial and deep to the parathyroid, the left recurrent laryngeal nerve was identified. The nerve was not dissected and care was taken to not disturb the nerve. A small portion of the parathyroid was sent for frozen pathology and the rest of the specimen was sent for permanent pathology. Frozen pathology was consistent with parathyroid adenoma. Fifteen minutes after excision, a PTH was drawn. This resulted at 73 (pre-op was 393). The wound bed was irrigated and hemostasis was confirmed. The recurrent laryngeal nerve was easily stimulating at 0.5mA. Surgicel SNoW was placed in the wound bed. The strap muscles were reapproximated using 3-0 Vicryl suture leaving a drainage hole inferiorly. The platysma was reapproximated with 3-0 Vicryl suture. The skin was closed using 4- 0 Monocryl suture in a running subcuticular fashion. Mastisol and steri-strips were placed over the incision. The patient was then returned to the anesthesiology service. She was awoken, extubated, and transferred to the postoperative recovery area in stable condition. There were no immediate complications. Estimated Blood Loss 20 [facility] Billing Surgery - Charge Forward: Surgery Billing
[2025-04-18] MEDS: fentaNYL CITRATE INJ (*CRX) 100 MCG/2 ML VIAL 25 MCG IV PUSH ×7 (10:23→11:05)
[2025-04-18] MEDS: ONDANSETRON INJ 4 MG/2 ML VIAL IV PUSH (11:15)
[2025-04-18 11:37] LABS: Alanine Aminotransferase 14 U/L (6-35); Albumin Level 4.0 g/dL (3.5-5.1); Alkaline Phosphatase 107 U/L (38-126); Anion Gap 6 mmol/L (4-12); Aspartate Amino Transferase 24 U/L (14-36); Bilirubin,Total 0.9 mg/dL (0.2-1.3); Blood Urea Nitrogen 17 mg/dL (7-17); Calcium 12.2 mg/dL (8.4-10.2); Carbon Dioxide 19 mmol/L (22-30); Chloride 113 mmol/L (98-107); Estimated CRCL calculation 39 ml/min; Estimated Glomerular Filt Rate 46; Glucose 111 mg/dL (65-110); Potassium 4.8 mmol/L (3.4-5.0); Sodium 138 mmol/L (137-145); Total Protein 7.8 g/dL (6.3-8.2)
[2025-04-18 11:45] LABS: Parathyroid Intact 27.4 pg/mL (14.5-75.2)
== END 2025-04-18 13:50 | disposition home or self-care (01) ==
PROVIDERS: PCP Internal Medicine; Visit Provider Otolaryngology
PROC: (CPT 60500; principal; 2025-04-18 07:30)
DX: E21.0 Primary hyperparathyroidism (principal); D35.1 Benign neoplasm of parathyroid gland; Z87.891 Personal history of nicotine dependence
CPT/HCPCS: 60500; 36415; 80053; 83970; 88305; 88331; A9270; J0330; J0360; J1100; J2004; J2405; J2704; J3010; J7120

== ENCOUNTER 2025-04-25 10:32 | Outpatient (CLI) | payer MEDICARE, SELFPAY ==
[2025-04-25 13:45] LABS: Add Urine Microscopic? YES; Appearance Urine Turbid (Clear); Glucose Urine UA Negative (Negative); Leukocyte Esterase Ur 3+ LEU/UL (Negative); Need Manual Microscopic Reviewed; Nitrate Urine Negative (Negative); Specific Grav Ur 1.010 (1.001-1.035)
[2025-04-25 13:49] LABS: Free T3 4.44 pg/mL (2.45-5.93); Free T4 Free Thyroxine 2.24 ng/dL (0.78-2.19)
[2025-04-25 13:50] LABS: Parathyroid Intact 65.9 pg/mL (14.5-75.2)
[2025-04-25 13:54] LABS: Alanine Aminotransferase 14 U/L (6-35); Albumin Level 3.9 g/dL (3.5-5.1); Alkaline Phosphatase 123 U/L (38-126); Anion Gap 8 mmol/L (4-12); Aspartate Amino Transferase 51 U/L (14-36); Bilirubin,Total 0.9 mg/dL (0.2-1.3); Blood Urea Nitrogen 22 mg/dL (7-17); Calcium 9.4 mg/dL (8.4-10.2); Carbon Dioxide 22 mmol/L (22-30); Chloride 109 mmol/L (98-107); Estimated Glomerular Filt Rate 38; Glucose 105 mg/dL (65-110); Potassium 4.3 mmol/L (3.4-5.0); Sodium 139 mmol/L (137-145); Total Protein 7.7 g/dL (6.3-8.2)
[2025-04-25 14:05] LABS: Thyroid Stimulating Hormone < 0.015 uIU/mL (0.465-4.680)
== END 2025-04-25 10:33 | disposition home or self-care (01) ==
PROVIDERS: Clinical Nurse Specialist; PCP Internal Medicine; Visit Provider Otolaryngology
DX: E21.0 Primary hyperparathyroidism (principal); E04.1 Nontoxic single thyroid nodule; R42 Dizziness and giddiness
CPT/HCPCS: 36415; 80053; 81001; 83970; 84439; 84443; 84481